=== PATIENT | male | born 1995 | race Caucasian/White ===

== ENCOUNTER 2019-09-20 10:14 | Emergency (ER) | payer MEDICAID, OTHER ==
[~2019-09-20] VITALS: Ht 185.4 cm; Wt 76.4 kg
[2019-09-20 10:24] VITALS: BP 121/77
[2019-09-20] MEDS ORDERED: RISP2TAB97 PO (11:14)
== END 2019-09-20 11:24 | disposition home or self-care (01) ==
LOC: ER 10:14
DX: F20.9 Schizophrenia, unspecified (principal); F17.200 Nicotine dependence, unspecified, uncomplicated; F12.90 Cannabis use, unspecified, uncomplicated; Z76.0 Encounter for issue of repeat prescription; Z60.2 Problems related to living alone; Z79.899 Other long term (current) drug therapy
CPT/HCPCS: 99283